=== PATIENT | female | born 1980 | race Caucasian/White ===

== ENCOUNTER 2022-03-03 08:56 | Emergency (ER) | payer BC, SELFPAY ==
--- NOTE | ~2022-03-03 | CT_ITS ---
EXAMINATION: CT abdomen pelvis w con DATE: 03/03/2022 11:51 INDICATION: Left lower quadrant pain. Leukocytosis. TECHNIQUE: Computed tomography (CT) of the abdomen and pelvis was performed with 100 cc Omnipaque 350 intravenous contrast. The dose-length product was 180.79 mGy-cm. Automated exposure control and iter ative reconstruction technique were employed. COMPARISON: Ultrasound dated 03/03/2022. FINDINGS: There is thickening of the sigmoid colon and rectum with mucosal enhancement, suspicious fo r colitis. There is a fluid-filled distended tubular structure with enhancement in the left pelvis wh ich does not definitely communicate with surrounding bowel. There is small amount of fluid in the lef t paracolic gutter and pelvis. The liver, spleen, pancreas, adrenal glands and kidneys are unremarkable. There is a 2 cm corpus lute al cyst of the right ovary. No acute osseous abnormality. No focal lytic or blastic lesions. IMPRESSION: 1. Fluid-filled distended enhancing tubular structure in the left pelvis, suspicious for pyosalpinx/p elvic inflammatory disease. Correlate clinically. 2: Abnormal thickening of the sigmoid colon and rectum, suspicious for colitis. 3: 2 cm corpus luteal cyst of the right ovary. Reviewed, dictated and finalized at location B. IMPRESSION: 1. Fluid-filled distended enhancing tubular structure in the left pelvis, suspi cious for pyosalpinx/pelvic inflammatory disease. Correlate clinically. 2: Abnormal thickening of the sigmoid colon and rectum, suspicious for colitis . 3: 2 cm corpus luteal cyst of the right ovary.
--- NOTE | ~2022-03-03 | US_ITS ---
EXAMINATION: US pelvic complete w TV DATE: 03/03/2022 10:40 INDICATION: Left pelvic pain. Concern for torsion. Comparison:No prior studies for comparison. TECHNIQUE: Multiple transabdominal and endovaginal sonographic images of the pelvis performed. FINDINGS: The uterus measures 7.2 x 2.9 x 3.9 cm. The endometrial complex measures 12 mm. There are m ultiple echogenic foci at the cervix, likely calcifications. The right ovary measures 4.6 x 1.9 x 2.3 cm and the left ovary measures 7 x 4.5 x 3.8 cm. There are m ultiple bilateral ovarian cysts, largest in the right ovary measuring 2.6 cm and on the left ovary me asuring 4 cm.. There is free fluid in the pelvis. There are no abnormal masses seen on either side. IMPRESSION: 1. Multiple bilateral simple and complicated cyst of the ovaries, largest on the left measuring 4 cm maximum dimension. Normal Doppler signal in both ovaries. 2: Mild endometrial thickening measuring 12 mm. 3: Echogenic foci at the cervix, likely calcifications. Reviewed, dictated and finalized at location B. IMPRESSION: 1. Multiple bilateral simple and complicated cyst of the ovaries, largest on th e left measuring 4 cm maximum dimension. Normal Doppler signal in both ovaries. 2: Mild endometrial thickening measuring 12 mm. 3: Echogenic foci at the cervix, likely calcifications.
[2022-03-03 09:00] VITALS: BP 122/66; PULSE 91; RESP 18; TEMP 36.6; O2SAT 98
--- NOTE | 2022-03-03 09:49 | ED.FEMALEGU ---
HPI - Female Genitourinary General Chief complaint: SCANNING TECH Stated complaint: LLQ pain Time Seen by Provider: 03/03/22 09:10 History of Present Illness HPI Narrative: Patient is a 41-year-old G0 female here for evaluation of sharp sided left lower quadrant/left pelvic pain for the past week. Patient states the pain is sharp and stabbing in nature, was intermittent and mild at first but acutely worsened last night. Additionally notes nausea but no vomiting. She has also been having non-bloody diarrhea for the past day. No dysuria, urgency or frequency. Denies history of STIs. Patient does have a history of abnormal cervical cells and is status post LEEP procedure; has not seen her [facility] for several years. Would like referral to new [facility]. Related Data Allergies Allergy/AdvReac Type Severity Reaction Status Date / Time No Known Allergies Allergy Verified 03/03/22 11:10 Review of Systems Review of Systems: Gen: Denies fevers or chills Eyes: Denies eye pain or visual change ENT: Denies congestion Respiratory: Denies shortness of breath or cough CV: Denies chest pain or palpitations GI: Reports left lower quadrant abdominal pain, diarrhea and nausea denies burning, urgency, frequency or hematuria Musculoskeletal: Denies back pain or muscle pain Neuro: Denies numbness, tingling, weakness or focal weakness Skin: Denies rash Except as documented, all other systems reviewed and negative Exam Narrative: APPEARANCE: Well appearing, no pain in distress, well-nourished. Head: Normocephalic and atraumatic. EYES: PERRLA/EOMI, conjunctivae clear NOSE: No nasal drainage EARS: External ear normal in appearance THROAT: Oropharynx is clear. Mucous membranes are moist. NECK: Supple. No adenopathy, no masses. RESPIRATORY: Airway patent, respirations nonlabored. Clear to auscultation bilaterally, no rales, rhonchi, wheezing. CARDIOVASCULAR: Regular rate and rhythm without murmurs, rubs, or gallops. ABDOMINAL: Tender to palpation in left pelvic area. Normoactive bowel sounds. Soft, nondistended. No rebound tenderness or guarding. : scar tissue on cervix, os is closed, no cmt. small amount of pink discharge noted in vault MUSCULOSKELETAL: Extremities are warm and well-perfused. Moves all extremities well. No edema. NEURO: Normal speech. No focal neurologic deficits. SKIN: Skin is warm and dry. No rashes. PSYCHIATRIC: Normal affect/mood. Course Vital Signs Vital signs: Vital Signs Temperature 97.9 F 03/03/22 09:00 Pulse Rate 91 03/03/22 09:00 Respiratory Rate 18 03/03/22 09:00 Blood Pressure 122/66 03/03/22 09:00 Pulse Oximetry 98 03/03/22 09:00 Oxygen Delivery Room Air 03/03/22 09:00 Temperature 97.9 F 03/03/22 09:00 Pulse Rate 75 03/03/22 13:53 Respiratory Rate 16 03/03/22 13:53 Blood Pressure 108/67 03/03/22 13:53 Pulse Oximetry 100 03/03/22 13:53 Oxygen Delivery Room Air 03/03/22 09:00 MDM - Female Genitourinary MDM Narrative Medical decision making narrative: 41 yo F here for evaluation of left-sided pelvic pain for the past and had associated nausea and vomiting. She is uncomfortable appearing on exam and is tender in the left pelvic region. Her exam reveals a moderate amount of pink-colored discharge in the vault, with a closed cervical os with no CMT. Abdomen pelvis CT is suspicious for PID. Transvaginal ultrasound shows numerous ovarian cysts of different sizes and a thickened endometrial complex but no ovarian torsion. Swabs were taken for STIs. Patient will be treated for PID given her symptoms. She does not meet admission criteria as she is afebrile, not , not severely ill appearing. Emphasized importance of following up with [facility] as an outpatient. Lab Data Result diagrams: 03/03/22 10:35 03/03/22 10:35 Labs: Lab Results 03/03/22 03/03/22 03/03/22 Range/Units 10:35 10:35 10:35 WBC 17.9 H (4.5-10.0) K/mm3 RBC 3.95
[2022-03-03 10:44] LABS: Basophils Absolute Auto 0.1 K/mm3 (0.0-0.1); Basophils Percent Auto 0.3 % (0.2-1.2); Eosinophils Percent Auto 0.2 % (0-4.4); Hematocrit 39.8 % (37.0-47.0); Hemoglobin 12.9 g/dL (12.0-15.0); Immature Granulocyte Absolute 0.15 K/mm3 (0.00-0.031); Immature Granulocyte Percent A 0.8 % (0-0.5); Lymphocytes Absolute Auto 0.74 K/mm3 (0.9-3.2); Lymphocytes Percent Auto 4.1 % (18.3-44.2); Mean Corpuscular HGB Conc 32.4 g/dl (32-36); Mean Corpuscular Hemoglobin 32.7 pg (26-34); Mean Corpuscular Volume 100.8 fl (80-100); Monocytes Absolute Auto 1.4 K/mm3 (0.1-0.6); Monocytes Percent Auto 7.6 % (2.6-8.5); Neutrophils Absolute Auto 15.6 K/mm3 (1.3-6.7); Platelet Count Result 298 k/mm3 (150-375); Red Blood Count 3.95 M/mm3 (4.2-5.4); White Blood Count 17.9 K/mm3 (4.5-10.0)
[2022-03-03 10:57] LABS: Alanine Aminotransferase 20 U/L (6-35); Alkaline Phosphatase 90 U/L (38-126); Anion Gap 9 mmol/L (8-16); Aspartate Amino Transferase 25 U/L (14-36); Bilirubin,Total 0.3 mg/dL (0.2-1.3); Blood Urea Nitrogen 5 mg/dL (7-17); Calcium 8.4 mg/dL (8.4-10.2); Carbon Dioxide 27 mmol/L (22-30); Chloride 104 mmol/L (98-107); Estimated Glomerular Filt Rate > 60; Glucose 117 mg/dL (65-110); Potassium 3.8 mmol/L (3.4-5.0); Sodium 140 mmol/L (137-145)
[2022-03-03 11:12] LABS: Beta HCG Quantitative < 2.39 mIU/ML
[2022-03-03] MEDS: ONDANSETRON INJ 4 MG/2 ML VIAL IV PUSH (11:24)
[2022-03-03 11:29] VITALS: BP 106/62; PULSE 69; RESP 18; O2SAT 99
[2022-03-03 12:13] LABS: Add Urine Microscopic? YES; Appearance Urine Clear (Clear); Bilirubin Urine Negative (Negative); Blood Urine 1+ (Negative); Color Urine Straw (Yellow); Glucose Urine UA Negative (Negative); Ketones Urine Negative (Negative); Leukocyte Esterase Ur Negative LEU/UL (Negative); Mucus Urine Rare /lpf; Nitrate Urine Negative (Negative); Protein Urine Negative (Negative); Specific Grav Ur 1.006 (1.001-1.035); Squamous Epithelial Cell Urine Rare /hpf (Few); Urobilinogen Urine Negative mg/dL (<2.0); WBC Urine 0-3 /hpf
[2022-03-03] MEDS: cefTRIAXone 1 GM VIAL 0.5 GM IM (13:50)
[2022-03-03 13:53] VITALS: BP 108/67; PULSE 75; RESP 16; O2SAT 100
== END 2022-03-03 14:10 | disposition home or self-care (01) ==
PROVIDERS: Physician Assistant; Emergency Provider Emergency Medicine; PCP Family Medicine
DX: N73.0 Acute parametritis and pelvic cellulitis (principal)
CPT/HCPCS: 36415; 74177; 76830; 76856; 80053; 81001; 84702; 85025; 87491; 87591; 87808; 96372; 96374; 96375; 99284; J0131; J0696; J2405; Q9967